=== PATIENT | male | born 1945 | race Caucasian/White ===

== ENCOUNTER 2025-06-13 02:58 | Outpatient (CLI) | payer MEDICARE, BC, SELFPAY ==
--- NOTE | 2025-06-13 | ETT_ITS ---
APPROVED REPORT Exam: Exercise Treadmill Patient Location: Out-Patient Room/Bed: Stress Nurse: Ivette Lewis RN Ordering Provider:DK LOPEZ, Contact Number: BMI: 30.34 Baseline Rhythm: Atrial Fibrillation. Comment: Frequent multifocal PVC's. Indications: Atrial Fibrillation, unspecified type. Medical History Medical History: Atrial Fibrillation; Bradycardia; HLD; HTN; EF of 54 percent; Moderate Mitral Regurgitation; BCC; Glaucoma; Malignant Neoplasm of the Prostate; Insomnia; Abnormal Glucose; Prediabetes. Cardiac Medications: Amlodipine; Apixaban; Aspirin; Dorzolamide-Timolol; Xalantan; Hydrochlorothiazide-Lisinopril; Simvastatin; Tamsulosin. Allergies: None. Cardiac Risk Factors: HLD; HTN; Prediabetes. Previous Cardiac Procedures: None. Pretest Chest Pain Characteristics: None. Exercise History: Indeterminate. Physical Disabilities: Pt. denied any physical disabilities, but was noted to be limping slightly on his right leg when ambulating. Lung Sounds: Clear bilaterally throughout, anterior and posterior. Heart Sounds: S1 and S2 auscultated. Stress Test Details Test: Exercise stress testing was performed using a Miguel protocol. Rest Stress HR Resting HR Supine: 42 bpm Max Heart Rate (APMHR): 141 bpm Resting HR Standin bpm Target HR (85% APMHR): 120 bpm Max HR Achieved: 135 bpm % of APMHR: 96 Recovery HR: 56 bpm HR response to stress: Normal HR response to stress. BP Resting BP Supine: 152/62 mmHg Resting BP Standin/60 mmHg Max BP: 186/50 mmHg Recovery BP: 156/50 mmHg BP response to stress: Normal blood pressure response to stress. ECG Resting ECG: Atrial Fibrillation. Ectopy: Frequent multifocal PVC's. Stress ECG: Atrial Fibrillation. ST Change: No significant ST segment changes noted. Arrhythmia: Frequent multifocal PVC's. Recovery ECG: Atrial Fibrillation. Recovery ST Change: No significant ST segment changes noted. Recovery Arrhythmia: Frequent multifocal PVC's. Clinical Reason for Termination: Fatigue; Dyspnea; Target HR Achieved. Stress Symptoms: General Fatigue; Dyspnea. Exercise duration: 04 min45 sec Highest Stage Reached: Stage 2: 2.5 mph at 12% grade. Exercise capacity: 6.71 METs Angina Score: None Rate Pressure Product: [id number] Stress ECG Conclusion 1. Resting electrocardiogram showed atrial fibrillation 2. Patient exercised on the Miguel protocol and completed workload of 6.7 METS 3. Normal heart rate and blood pressure response to exercise. The patient achieved 96% of maximal predicted heart rate for age 4. There was no electrocardiographic evidence of myocardial ischemia 5. Atrial fibrillation was present throughout. PVCs were noted as well Stress Test Summary STAGE Time (mins) Speed (mph) Grade (%) HR BP SpO2 SYMPTOMS METS Supine 42 152/62 96 Standing 55 170/60 98 1 3 1.7 10 83 160/70 97 Pt. c/o mild shortness of breath. 4.5 2 6 2.5 12 129 98 Pt. c/o mild shortness of breath and mild fatigue. 7 1 min recovery 72 186/50 98 Pt. c/o mild shortness of breath and mild fatigue. 3 min recovery 68 170/68 97 6 min recovery 56 156/50 98 Pt. states that all shortness of breath and fatigue has resolved. ETT was stopped due to pt. achieving a HR beyond the target HR, as well as, mild shortness of breath, mild fatigue, and staff concern for pt. safety due to pt. displaying poor balance on the treadmill. All shortness of breath and fatigue was resolved prior to pt. leaving the Stress Lab. Pt. tolerated the ETT fair. Pt. was conversing pleasantly with nursing staff upon leaving the Stress Lab and left ambulatory in no apparent distress.
== END 2025-06-13 03:18 ==
PROVIDERS: PCP Family Medicine; Visit Provider Internal Medicine Cardiovascular Disease
DX: I48.91 Unspecified atrial fibrillation (principal)
CPT/HCPCS: 93016; 93018; 93017